=== PATIENT | female | born 1955 | race Caucasian/White ===

== ENCOUNTER 2019-03-28 13:31 | Emergency (ER) | payer OTHER, MEDICARE ==
[~2019-03-28] VITALS: Ht 167.6 cm; Wt 104.3 kg
[2019-03-28 13:57] VITALS: BP_SYST 157
--- NOTE | 2019-03-28 15:26 | NUR ---
Ambulatory to bed 7
--- NOTE | 2019-03-28 16:00 | NUR ---
PT AAOx4 ambulated into ED c/o constipation x 10 days accompanying diffuse abdominal pain; Pt was referred from urgent care to rule out possible SBO. No other injuries/complaints per pt/noted. Will continue to monitor.
--- NOTE | 2019-03-28 16:41 | NUR ---
ER Dr. Martínez at bedside examining patient.
--- NOTE | 2019-03-28 16:50 | NUR ---
Pt refusing blood work. Pt states "You don't need five fucking vials of my blood. I'm not fucking doing it." Dr. Martínez made aware.
--- NOTE | 2019-03-28 17:01 | NUR ---
Pt taken to radiology in stable condition
--- NOTE | 2019-03-28 17:17 | NUR ---
Pt returned from radiology in stable condition
--- NOTE | 2019-03-28 18:06 | NUR ---
Pillow provided per pt request
[2019-03-28 18:15] LABS: BASOPHILS # (AUTO) 0.1 K/uL (0.0-0.2); BASOPHILS % (AUTO) 0.6 % (0.0-2.0); EOSINOPHILS # (AUTO) 0.1 K/uL (0.0-0.4); EOSINOPHILS % (AUTO) 1.7 % (0.0-4.0); HEMATOCRIT 39.5 % (36-48); HEMOGLOBIN 13.2 g/dL (12.0-16.0); LYMPHOCYTES # (AUTO) 2.1 K/uL (1.0-5.5); LYMPHOCYTES % (AUTO) 24.9 % (20.5-51.5); MEAN CORPUSCULAR HEMOGLOBIN 30 pg (27-31); MEAN CORPUSCULAR HGB CONC 34 % (32-36); MEAN CORPUSCULAR VOLUME 91 fL (79.0-98.0); MONOCYTES # (AUTO) 0.5 K/uL (0.0-1.0); MONOCYTES % (AUTO) 5.4 % (1.7-9.3); NEUTROPHILS # (AUTO) 5.8 K/uL (1.8-7.7); NEUTROPHILS % (AUTO) 67.4 % (40.0-70.0); PLATELET COUNT (AUTO) 243 K/uL (130-430); RED BLOOD CELL COUNT(AUTO) 4.34 MIL/uL (4.2-6.2); RED CELL DISTRIBUTION WIDTH 13.6 % (9.0-15.0); WHITE BLOOD COUNT (AUTO) 8.6 K/uL (4.8-10.8)
[2019-03-28 18:23] LABS: CREATININE 0.63 mg/dL (0.55-1.30)
[2019-03-28 18:27] LABS: POTASSIUM 4.8 mmol/L (3.5-5.1)
[2019-03-28 18:29] LABS: ALBUMIN 3.7 g/dL (3.4-4.8); TOTAL BILIRUBIN 0.8 mg/dL (0.0-1.0)
--- NOTE | 2019-03-28 18:48 | NUR ---
Pt resting comfortably in bed with no signs of distress
[2019-03-28 20:15] VITALS: BP_SYST 142
--- NOTE | 2019-03-28 20:15 | NUR ---
Patient given written and verbal discharge instructions and verbalizes understanding. ER MD HERNANDES discussed with patient the results and treatment provided. Patient in stable condition. ID arm band removed. IV catheter removed intact and dressing applied, no active bleeding. Rx of LACTULOSE given. Patient educated on pain management and to follow up with PMD. Pain Scale 0. Opportunity for questions provided and answered. Medication side effect fact sheet provided.
== END 2019-03-28 20:15 | disposition home or self-care (01) ==
LOC: SED 13:31
DX: K59.03 Drug induced constipation (principal); T40.2X5A Adverse effect of other opioids, initial encounter; K21.9 Gastro-esophageal reflux disease without esophagitis; Z90.710 Acquired absence of both cervix and uterus; Z88.1 Allergy status to other antibiotic agents; Y92.89 Other specified places as the place of occurrence of the external cause
CPT/HCPCS: 36415; 74021; 80053; 83690-TC; 85025; 99284